=== PATIENT | female | born 1970 | race Caucasian/White ===

== ENCOUNTER 2016-11-04 10:04 | Emergency (ER) | payer SELFPAY ==
[2016-11-04 10:15] VITALS: BP 150/95; BMI 32.5
--- NOTE | 2016-11-04 11:02 | DR.NAUSEAF ---
HPI - Time Seen Time seen: 10:55 - Primary Care Physician Primary Care Physician: Dr Gonzalez - Complaints Chief Complaint:: "PT WOKE UP THIS MORNING WITH RIGHT SIDE PAIN AND N/V - Source History Provided: Patient - Mode of Arrival Mode of Arrival: Ambulatory - Timing Onset of Chief Complaint: 11/04/16 PMH - PMH Past Medical History: No Past Surgical History: Yes Surgical History: Other Past Surgical History Comment: BLADDER MESH, CARPARTANAL, PLATE IN HEAD - Family History History of Family Medical Conditions: Yes Family Medical History: Diabetes Mellitus, Cancer - Social History Does patient currently use any type of tobacco product: Yes Have you used tobacco products in the last 12 months: Yes Type of Tobacco Use: Cigarettes How many years tobacco product used: 35 Does any household member use tobacco: No Alcohol Use: None Do you use any recreational Drugs:: No Lives With: Family Lives Where: Home - infectious screening In the last 2 months have you had wt loss of >10#?: NO Have you had fever, night sweats or hemotysis?: No Have you traveled outside the country in the last 6 months?: No Isolation: Standard ROS - Review of Systems Constitutional: negative: Diaphoresis Eyes: No Symptoms Reported ENTM: No Symptoms Reported Respiratoy: No Symptoms Reported Cardiovascular: No Symptoms Reported Gastrointestinal/Abdominal: Abdominal Pain, Nausea Genitourinary: Dysuria Neurological: No Symptoms Reported Musculoskeletal: No Symptoms Reported Integumentary: No Symptoms Reported Hematologic/Lymphatic: No Symptoms Reported Endocrine: No Symptoms Reported Psychiatric: No Symptoms Reported All Other Systems: Reviewed and Negative PE - Vital Signs Vitals: Temperature 97.7 F Pulse Rate 80 Respiratory Rate 20 Blood Pressure 150/95 O2 Sat by Pulse Oximetry 98 - General Limitations: No Limitations General Appearance: Alert, In No Apparent Distress, Anxious - Head Head Exam: Normal Inspection, Atraumatic - Eyes Eye exam: Normal Appearance - ENT ENT Exam: Normal Exam - Neck Neck Exam: Normal Inspection, Full ROM - Chest Chest Inspection: Normal Inspection - Respiratory Respiratory Exam: Normal Lung Sounds Bilat Respiratory Exam: Bilateral Clear to Auscultation - Cardiovascular Cardiovascular Exam: Regular Rate, Normal Rhythm - Abdominal Exam Abdominal Exam: Normal Inspection Abdominal Tenderness: RLQ, Suprapubic - Rectal Rectal Exam: Deferred - External Exam: Female: Deferred : Speculum Exam (Female): Deferred : Bimanual Exam (female): Deferred - Extremities Extremities Exam: Normal Inspection - Back Back Exam: Normal Inspection - Neurologic Neurological Exam: Alert, Oriented X3, CN II-XII Intact - Psychiatric Psychiatric Exam: Normal Affect - Skin Skin Exam: Warm, Intact ROR - Labs Reviewed Laboratory Results Reviewed?: Yes (UA" WBC 5-10, Leukocyte esterace 2+) Result Diagrams: 11/04/16 11:17 11/04/16 11:17 Laboratory: WBC 10.0 X10^3/uL (3.6-10.0) 11/04/16 11:17 RBC 4.42 X10^6/uL (3.5-5.4) 11/04/16 11:17 Hgb 14.0 g/dL (12.0-16.0) 11/04/16 11:17 Hct 39.8 % (36.0-47.0) 11/04/16 11:17 MCV 90.1 fL (80.0-100.0) 11/04/16 11:17 MCH 31.6 pg (27.0-34.0) 11/04/16 11:17 MCHC 35.1 g/dL (33.0-35.0) H 11/04/16 11:17 RDW 12.9 % (11.6-16.5) 11/04/16 11:17 Plt Count 182 X10^3/uL (150.0-450.0) 11/04/16 11:17 MPV 9.8 fL (7.4-11.0) 11/04/16 11:17 Neut % 65.7 % (42.0-75.0) 11/04/16 11:17 Lymph % 24.2 % (21.0-51.0) 11/04/16 11:17 [place] % 7.5 % (0.0-13.0) 11/04/16 11:17 Eos % 1.6 % (0.9-2.9) 11/04/16 11:17 Baso % 1.0 % (0.2-1.0) 11/04/16 11:17 Neut # 6.5 x10^3/uL (2.2-4.8) H 11/04/16 11:17 Lymph # 2.4 X10^3/uL (1.3-2.9) 11/04/16 11:17 [place] # 0.8 x10^3/uL (0.3-0.8) 11/04/16 11:17 Eos # 0.2 x10^3/uL (0.0-0.2) 11/04/16 11:17 Baso # 0.1 X10^3/uL (0.0-0.1) 11/04/16 11:17 Absolute Nucleated RBC 0.1 /100WBC 11/04/16 11:17 Sodium 139 mmol/L (136-145) 11/04/16 11:17 Corrected Sodium TNP 11/04/16 11:17 Potassium 3.9 mmol/L (3.5-5.1) 11/04/16 11:17 Chloride 107 mmol/L (98-107) 11/04/16 11:17 Carbon Dioxide 23.8 mmol/L (21-32) 11/04/16 11:17 BUN 7 mg/dL (7-18) 11/04/16 11:17 Creatinine 0.71 mg/dL (0.55-1.02) 11/04/16 11:17 Est GFR (MDRD) Af Amer > 60 (>60) 11/04/16 11:17 Est GFR (MDRD) Non-Af > 60 (>60) 11/04/16 11:17 Glucose 96 mg/dL (65-99) 11/04/16 11:17 Calcium 8.6 mg/dL (8.5-10.1) 11/04/16 11:17 Corrected Calcium TNP 11/04/16 11:17 Total Bilirubin 0.20 mg/dL (0.2-1.0) 11/04/16 11:17 AST 14 Units/L (15-37) L 11/04/16 11:17 ALT 29 Units/L (12-78) 11/04/16 11:17 Alkaline Phosphatase 82 Units/L (46-116) 11/04/16 11:17 C-Reactive Protein 3.90 mg/L (0-3.0) H 11/04/16 11:17 Total Protein 6.8 g/dL (6.4-8.2) 11/04/16 11:17 Albumin 3.4 g/dL (3.4-5.0) 11/04/16 11:17 Globulin 3.4 g/dL (2.5-4.5) 11/04/16 11:17 Albumin/Globulin Ratio 1.0 Ratio (1.1-2.1) L 11/04/16 11:17 Specimen Type Clean catch urine 11/04/16 11:30 Urine Color Yellow (YELLOW) 11/04/16 11:30 Urine Appearance Cloudy (CLEAR) 11/04/16 11:30 Urine pH 5.0 (5.0 - 8.0) 11/04/16 11:30 Ur Specific [place] 1.020 (1.000-1.030) 11/04/16 11:30 Urine Protein 1+ (NEGATIVE) 11/04/16 11:30 Urine Glucose (UA) Negative (NEGATIVE) 11/04/16 11:30 Urine Ketones 1+ (NEGATIVE) 11/04/16 11:30 Urine Occult Blood Negative (NEGATIVE) 11/04/16 11:30 Urine Nitrite Negative (NEGATIVE) 11/04/16 11:30 Urine Bilirubin Negative (NEGATIVE) 11/04/16 11:30 Urine Urobilinogen 1+ (NORMAL) 11/04/16 11:30 Ur Leukocyte Esterase 2+ (NEGATIVE) 11/04/16 11:30 Urine RBC 0-3 /HPF (NEGATIVE) 11/04/16 11:30 Urine WBC 5-10 /HPF (NEGATIVE) 11/04/16 11:30 Ur Squamous Epith Cells Numerous /HPF (NEGATIVE) 11/04/16 11:30 Urine Bacteria Trace /HPF (NEGATIVE) 11/04/16 11:30 Hyaline Casts Few /LPF (NEGATIVE) 11/04/16 11:30 Urine Mucus Many /HPF (NEGATIVE) 11/04/16 11:30 Ur Culture Indicated? No/not indicated 11/04/16 11:30 - Diagnosis Discharge Problem: UTI (urinary tract infection) Qualifiers: Urinary tract infection type: acute cystitis Hematuria presence: without hematuria Qualified Code(s): N30.00 - Acute cystitis without hematuria - Discharge Plan Condition: Stable - Follow ups/Referrals Follow ups/Referrals: NFD,None [Primary Care Provider] - 3 days - Instructions
[2016-11-04] MEDS ORDERED: MORPHINE SULFATE INJ 4 MG IVP ONE (11:04)
[2016-11-04] MEDS ORDERED: NS 1000 ML 1,000 ML ONE (11:20)
[2016-11-04] MEDS ORDERED: MORPHINE SULFATE INJ 4 MG ONE (11:21)
[2016-11-04] MEDS ORDERED: STERILE WATER IRRIGATION IR ONE (11:21)
[2016-11-04 11:26] LABS: BASOPHILS # (AUTO) 0.1 X10^3/uL (0.0-0.1); EOSINOPHILS # (AUTO) 0.2 x10^3/uL (0.0-0.2); EOSINOPHILS % (AUTO) 1.6 % (0.9-2.9); HEMATOCRIT 39.8 % (36.0-47.0); LYMPHOCYTES # (AUTO) 2.4 X10^3/uL (1.3-2.9); LYMPHOCYTES % (AUTO) 24.2 % (21.0-51.0); MEAN CORPUSCULAR HEMOGLOBIN 31.6 pg (27.0-34.0); MEAN CORPUSCULAR HGB CONC 35.1 g/dL (33.0-35.0); MEAN CORPUSCULAR VOLUME 90.1 fL (80.0-100.0); MEAN PLATELET VOLUME 9.8 fL (7.4-11.0); MONOCYTES # (AUTO) 0.8 x10^3/uL (0.3-0.8); MONOCYTES % (AUTO) 7.5 % (0.0-13.0); NEUTROPHILS # (AUTO) 6.5 x10^3/uL (2.2-4.8); NEUTROPHILS % (AUTO) 65.7 % (42.0-75.0); PLATELET COUNT 182 X10^3/uL (150.0-450.0); RED BLOOD COUNT 4.42 X10^6/uL (3.5-5.4); RED CELL DISTRIBUTION WIDTH 12.9 % (11.6-16.5)
[2016-11-04 11:38] LABS: BILIRUBIN,URINE NEGATIVE (NEGATIVE); BLOOD/HEMOGLOBIN,URINE NEGATIVE (NEGATIVE); GLUCOSE, URINE NEGATIVE (NEGATIVE); KETONES,URINE 1+ (NEGATIVE); LEUKOCYTE ESTERASE ,URINE 2+ (NEGATIVE); NITRITES,URINE NEGATIVE (NEGATIVE); PROTEIN,URINE 1+ (NEGATIVE); UROBILINOGEN,URINE 1+ (NORMAL)
[2016-11-04 11:49] LABS: ALANINE AMINOTRANSFERASE 29 Units/L (12-78); ALBUMIN 3.4 g/dL (3.4-5.0); ALKALINE PHOSPHATASE 82 Units/L (46-116); ASPARTATE AMINO TRANSFERASE 14 Units/L (15-37); BLOOD UREA NITROGEN 7 mg/dL (7-18); CALCIUM 8.6 mg/dL (8.5-10.1); CARBON DIOXIDE 23.8 mmol/L (21-32); CHLORIDE 107 mmol/L (98-107); CREATININE 0.71 mg/dL (0.55-1.02); SODIUM 139 mmol/L (136-145); TOTAL PROTEIN 6.8 g/dL (6.4-8.2); eGFR BLACK RACES > 60 (>60); eGFR NON BLACK RACES > 60 (>60)
[2016-11-04 11:50] LABS: APPEARANCE,URINE CLOUDY (CLEAR); BACTERIA,URINE TRACE /HPF (NEGATIVE); COLOR,URINE YELLOW (YELLOW); HYALINE CASTS, URINE FEW /LPF (NEGATIVE); MUCUS,URINE MANY /HPF (NEGATIVE); RBC,URINE 0-3 /HPF (NEGATIVE); SQUAMOUS EPITHELIAL CELL,UR NUMEROUS /HPF (NEGATIVE)
[2016-11-04] MEDS ORDERED: NS 1000 ML 1,000 ML IV SCH (12:00)
[2016-11-04] MEDS ORDERED: BACTRIM DS TAB PO ONE ×2 (12:27→12:29)
== END 2016-11-04 12:40 | disposition home or self-care (01) ==
LOC: ER 10:25
DX: N30.00 Acute cystitis without hematuria (principal)
CPT/HCPCS: 36415; 80053; 81001; 85025; 86140; 96365; 96367; 96374; 99282; 99283; A4217; A4222; J2270

== ENCOUNTER 2016-11-07 10:07 | Emergency (ER) | payer SELFPAY ==
[2016-11-07 10:15] VITALS: BP 135/87; BMI 32.5
[2016-11-07] MEDS ORDERED: ZOFRAN INJ 4 MG VIAL IVP ONE (10:46)
[2016-11-07] MEDS ORDERED: MORPHINE SULFATE INJ 4 MG IM ONE (10:47)
--- NOTE | 2016-11-07 10:48 | DR.GENAD ---
HPI - PCP Primary Care Physician: Carlos - HPI Comment HPI Comment: TAKING MEDICATIONS BUT GETTING WORSE. PAIN WORSE AND PATIENT FEEL WEAK. NO DYSURIA. POOR ORAL INTAKE. - Complaint/Symptoms Chief Complaint Doctors Comments: RIGHT FLANK PAIN TIMES ONE WEEK. Chief Complaint:: "I came to the ER Thursday and they diagnosed me with a UTI. I am taking the medicine, but I have started getting way worse pain starting in my right side all the way to my back. It is a constant pain but when I move it gets really sharp." - Nurses notes reviewed Nurses Notes Review: Yes - Source History Provided: Patient - Mode of Arrival Mode of Arrival: Ambulatory - Timing Onset of Chief Complaint: 11/07/16 Came on: Gradually - Duration Duration: Constant Duration: Days - Severity Severity: Moderate PMH - PMH Past Medical History: No Past Surgical History: Yes Surgical History: Other Past Surgical History Comment: Plate in head - Family History History of Family Medical Conditions: Yes Family Medical History: Diabetes Mellitus, Cancer - Social History Does patient currently use any type of tobacco product: Yes Have you used tobacco products in the last 12 months: Yes Type of Tobacco Use: Cigarettes Does any household member use tobacco: Yes Alcohol Use: None Do you use any recreational Drugs:: No Lives With: Spouse Lives Where: Home - infectious screening In the last 2 months have you had wt loss of >10#?: NO Have you had fever, night sweats or hemotysis?: No Have you traveled outside the country in the last 6 months?: No Isolation: Standard ROS - Review of Systems Constitutional: Weakness, Fatigue, Loss of Appetite. negative: Chills, Fever Eyes: No Symptoms Reported. negative: Eye Pain, Discharge ENTM: No Symptoms Reported. negative: Ear Pain, Nose Discharge, Nose Congestion , Throat Pain Respiratoy: No Symptoms Reported. negative: Productive Cough, Non-Productive Cough, Short of Breath, Wheezing, Hemoptysis Cardiovascular: No Symptoms Reported. negative: Chest Pain Gastrointestinal/Abdominal: Abdominal Pain, Nausea. negative: Diarrhea, Vomiting Neurological: Weakness. negative: Headache, Dizziness Musculoskeletal: Back Pain, Muscle Pain, Right, Back Integumentary: No Symptoms Reported Hematologic/Lymphatic: No Symptoms Reported Endocrine: No Symptoms Reported All Other Systems: Reviewed and Negative PE - Vital Signs Vitals: Temperature 97.8 F Pulse Rate 74 Respiratory Rate 18 Blood Pressure 135/87 O2 Sat by Pulse Oximetry 96 - General Limitations: No Limitations General Appearance: Alert - Head Head Exam: Normal Inspection - Eyes Eye exam: Normal Appearance - ENT ENT Exam: Normal External Ear Exam External Ear Exam: Normal External Inspection TM/Canal Exam: Bilateral Normal Mouth Exam: Normal Inspection Throat Exam: Normal Inspection - Neck Neck Exam: Normal Inspection - Chest Chest Inspection: Symmetric Chest Wall Rise - Respiratory Respiratory Exam: Normal Lung Sounds Bilat Respiratory Exam: Bilateral Clear to Auscultation - Cardiovascular Cardiovascular Exam: Regular Rate, Normal Rhythm, Normal Heart Sounds - Abdominal Exam Abdominal Exam: Normal Bowel Sounds, Soft. negative: Tenderness - Extremities Extremities Exam: Normal Inspection - Back Back Exam: Paraspinal Tenderness - Neurologic Neurological Exam: Alert, Oriented X3 - Psychiatric Psychiatric Exam: Normal Affect, Normal Mood - Skin Skin Exam: Normal Color MDM - Differential Diagnosis Differential Diagnosis: LOW BACK PAIN, UTI, KIDNEY STONE Course - Treatment Treatment: SEE ODERS. - Education/Counseling Education/Counseling: Patient, Education Educated On: Treatment, Diagnosis, Needs for Follow Up ROR - Labs Reviewed Laboratory Results Reviewed?: Yes Result Diagrams: 11/07/16 11:00 11/07/16 11:00 Laboratory: WBC 9.2 X10^3/uL (3.6-10.0) 11/07/16 11:00 RBC 4.39 X10^6/uL (3.5-5.4) 11/07/16 11:00 Hgb 13.6 g/dL (12.0-16.0) 11/07/16 11:00 Hct 39.5 % (36.0-47.0) 11/07/16 11:00 MCV 90.1 fL (80.0-100.0) 11/07/16 11:00 MCH 30.9 pg (27.0-34.0) 11/07/16 11:00 MCHC 34.3 g/dL (33.0-35.0) 11/07/16 11:00 RDW 12.8 % (11.6-16.5) 11/07/16 11:00 Plt Count 162 X10^3/uL (150.0-450.0) 11/07/16 11:00 MPV 9.8 fL (7.4-11.0) 11/07/16 11:00 Neut % 68.6 % (42.0-75.0) 11/07/16 11:00 Lymph % 22.3 % (21.0-51.0) 11/07/16 11:00 [place] % 6.9 % (0.0-13.0) 11/07/16 11:00 Eos % 1.0 % (0.9-2.9) 11/07/16 11:00 Baso % 1.2 % (0.2-1.0) H 11/07/16 11:00 Neut # 6.3 x10^3/uL (2.2-4.8) H 11/07/16 11:00 Lymph # 2.0 X10^3/uL (1.3-2.9) 11/07/16 11:00 [place] # 0.6 x10^3/uL (0.3-0.8) 11/07/16 11:00 Eos # 0.1 x10^3/uL (0.0-0.2) 11/07/16 11:00 Baso # 0.1 X10^3/uL (0.0-0.1) 11/07/16 11:00 Absolute Nucleated RBC 0.0 /100WBC 11/07/16 11:00 Sodium 137 mmol/L (136-145) 11/07/16 11:00 Corrected Sodium TNP 11/07/16 11:00 Potassium 4.2 mmol/L (3.5-5.1) 11/07/16 11:00 Chloride 105 mmol/L (98-107) 11/07/16 11:00 Carbon Dioxide 26.5 mmol/L (21-32) 11/07/16 11:00 BUN 13 mg/dL (7-18) 11/07/16 11:00 Creatinine 0.82 mg/dL (0.55-1.02) 11/07/16 11:00 Est GFR (MDRD) Af Amer > 60 (>60) 11/07/16 11:00 Est GFR (MDRD) Non-Af > 60 (>60) 11/07/16 11:00 Glucose 84 mg/dL (65-99) 11/07/16 11:00 Calcium 8.6 mg/dL (8.5-10.1) 11/07/16 11:00 Corrected Calcium TNP 11/07/16 11:00 Total Bilirubin 0.30 mg/dL (0.2-1.0) 11/07/16 11:00 AST 15 Units/L (15-37) 11/07/16 11:00 ALT 26 Units/L (12-78) 11/07/16 11:00 Alkaline Phosphatase 77 Units/L (46-116) 11/07/16 11:00 Total Protein 6.8 g/dL (6.4-8.2) 11/07/16 11:00 Albumin 3.5 g/dL (3.4-5.0) 11/07/16 11:00 Globulin 3.3 g/dL (2.5-4.5) 11/07/16 11:00 Albumin/Globulin Ratio 1.1 Ratio (1.1-2.1) 11/07/16 11:00 Specimen Type Clean catch urine 11/07/16 11:29 Urine Color Yellow (YELLOW) 11/07/16 11:29 Urine Appearance Hazy (CLEAR) 11/07/16 11:29 Urine pH 6.0 (5.0 - 8.0) 11/07/16 11:29 Ur Specific [place] 1.015 (1.000-1.030) 11/07/16 11:29 Urine Protein Negative (NEGATIVE) 11/07/16 11:29 Urine Glucose (UA) Negative (NEGATIVE) 11/07/16 11:29 Urine Ketones Negative (NEGATIVE) 11/07/16 11:29 Urine Occult Blood Negative (NEGATIVE) 11/07/16 11:29 Urine Nitrite Negative (NEGATIVE) 11/07/16 11:29 Urine Bilirubin Negative (NEGATIVE) 11/07/16 11:29 Urine Urobilinogen Normal (NORMAL) 11/07/16 11:29 Ur Leukocyte Esterase 1+ (NEGATIVE) 11/07/16 11:29 Urine RBC Rare /HPF (NEGATIVE) 11/07/16 11:29 Urine WBC 0 - 3 /HPF (NEGATIVE) 11/07/16 11:29 Ur Squamous Epith Cells Many /HPF (NEGATIVE) 11/07/16 11:29 Amorphous Sediment 2+ /HPF (NEGATIVE) 11/07/16 11:29 Urine Bacteria Trace /HPF (NEGATIVE) 11/07/16 11:29 Ur Culture Indicated? No/not indicated 11/07/16 11:29 - XRAY XRAY Interpreted by: Radiologist XRAY Findings: REPORT DISCUSS WITH PATIENT. - Diagnosis Discharge Problem: Abdominal pain Qualifiers: Abdominal location: lower abdomen, unspecified Qualified Code(s): R10.30 - Lower abdominal pain, unspecified Low back pain Qualifiers: Chronicity: acute Back pain laterality: right Sciatica presence: without sciatica Qualified Code(s): M54.5 - Low back pain - Discharge Plan Disposition: HOME, SELF-CARE Condition: Stable Prescriptions: Cyclobenzaprine HCl [FLEXERIL 10 MG *] 10 mg PO TID #20 tab - Follow ups/Referrals Follow ups/Referrals: HILDA STRICKLAND [Primary Care Provider] - 3 days - Instructions Instructions: Abdominal Pain, Adult, Exrt-as-[place]jem, Back Pain, Adult, Easy-to- Read Additional Instructions: RETURN TO ED IF WORSE.
[2016-11-07] MEDS ORDERED: ZOFRAN INJ 4 MG VIAL ONE (11:04)
[2016-11-07] MEDS ORDERED: MORPHINE SULFATE INJ 4 MG ONE (11:04)
[2016-11-07 11:11] LABS: BASOPHILS # (AUTO) 0.1 X10^3/uL (0.0-0.1); BASOPHILS % (AUTO) 1.2 % (0.2-1.0); EOSINOPHILS # (AUTO) 0.1 x10^3/uL (0.0-0.2); HEMATOCRIT 39.5 % (36.0-47.0); HEMOGLOBIN 13.6 g/dL (12.0-16.0); LYMPHOCYTES % (AUTO) 22.3 % (21.0-51.0); MEAN CORPUSCULAR HEMOGLOBIN 30.9 pg (27.0-34.0); MEAN CORPUSCULAR HGB CONC 34.3 g/dL (33.0-35.0); MEAN CORPUSCULAR VOLUME 90.1 fL (80.0-100.0); MEAN PLATELET VOLUME 9.8 fL (7.4-11.0); MONOCYTES # (AUTO) 0.6 x10^3/uL (0.3-0.8); MONOCYTES % (AUTO) 6.9 % (0.0-13.0); NEUTROPHILS # (AUTO) 6.3 x10^3/uL (2.2-4.8); NEUTROPHILS % (AUTO) 68.6 % (42.0-75.0); PLATELET COUNT 162 X10^3/uL (150.0-450.0); RED BLOOD COUNT 4.39 X10^6/uL (3.5-5.4); RED CELL DISTRIBUTION WIDTH 12.8 % (11.6-16.5); WHITE BLOOD COUNT 9.2 X10^3/uL (3.6-10.0)
[2016-11-07 11:20] LABS: ALANINE AMINOTRANSFERASE 26 Units/L (12-78); ALBUMIN 3.5 g/dL (3.4-5.0); ALKALINE PHOSPHATASE 77 Units/L (46-116); ASPARTATE AMINO TRANSFERASE 15 Units/L (15-37); BLOOD UREA NITROGEN 13 mg/dL (7-18); CALCIUM 8.6 mg/dL (8.5-10.1); CARBON DIOXIDE 26.5 mmol/L (21-32); CHLORIDE 105 mmol/L (98-107); CREATININE 0.82 mg/dL (0.55-1.02); SODIUM 137 mmol/L (136-145); TOTAL PROTEIN 6.8 g/dL (6.4-8.2); eGFR BLACK RACES > 60 (>60); eGFR NON BLACK RACES > 60 (>60)
[2016-11-07 11:44] LABS: BILIRUBIN,URINE NEGATIVE (NEGATIVE); BLOOD/HEMOGLOBIN,URINE NEGATIVE (NEGATIVE); GLUCOSE, URINE NEGATIVE (NEGATIVE); KETONES,URINE NEGATIVE (NEGATIVE); LEUKOCYTE ESTERASE ,URINE 1+ (NEGATIVE); NITRITES,URINE NEGATIVE (NEGATIVE); PROTEIN,URINE NEGATIVE (NEGATIVE); UROBILINOGEN,URINE NORMAL (NORMAL)
[2016-11-07 11:51] LABS: APPEARANCE,URINE HAZY (CLEAR); COLOR,URINE YELLOW (YELLOW)
--- NOTE | 2016-11-07 11:52 | CT ---
History: Right flank pain Study: CT abdomen and pelvis without contrast Findings: [address] imaging is performed from above the diaphragms to below the pubic s ymphysis without oral or intravenous contrast given. Coronal and sagittal reformatted images are subm itted as well. Lung bases are clear and there are no pleural effusions. The liver and spleen are norm al in size and uniform in density. The pancreas, gallbladder, adrenal glands and kidneys appear anato mically normal. No masses adenopathy or abnormal fluid collections are identified. The appendix appea rs unremarkable. Impression: Normal noncontrast CT of the chest and abdomen. Reported By:
[2016-11-07 11:54] LABS: AMORPHOUS SEDIMENT,UR 2+ /HPF (NEGATIVE); BACTERIA,URINE TRACE /HPF (NEGATIVE); RBC,URINE RARE /HPF (NEGATIVE); SQUAMOUS EPITHELIAL CELL,UR MANY /HPF (NEGATIVE)
== END 2016-11-07 12:34 | disposition home or self-care (01) ==
LOC: ER 10:18
DX: R10.84 Generalized abdominal pain (principal); M54.5 Low back pain
CPT/HCPCS: 36415; 74176; 80053; 81001; 85025; 96372; 99282; 99283; J2270; J2405

== ENCOUNTER 2017-06-11 10:22 | Emergency (ER) | payer SELFPAY ==
[2017-06-11 10:29] VITALS: BP 126/63; BMI 32.5
[2017-06-11 11:33] LABS: BILIRUBIN,URINE NEGATIVE (NEGATIVE); BLOOD/HEMOGLOBIN,URINE NEGATIVE (NEGATIVE); GLUCOSE, URINE NEGATIVE (NEGATIVE); KETONES,URINE NEGATIVE (NEGATIVE); LEUKOCYTE ESTERASE ,URINE 1+ (NEGATIVE); NITRITES,URINE NEGATIVE (NEGATIVE); PROTEIN,URINE 2+ (NEGATIVE); UROBILINOGEN,URINE NORMAL (NORMAL)
[2017-06-11 11:41] LABS: APPEARANCE,URINE HAZY (CLEAR); COLOR,URINE YELLOW (YELLOW)
[2017-06-11 11:42] LABS: BACTERIA,URINE NEGATIVE /HPF (NEGATIVE); RBC,URINE NONE SEEN /HPF (NONE SEEN); SQUAMOUS EPITHELIAL CELL,UR MODERATE /HPF (NEGATIVE)
[2017-06-11] MEDS ORDERED: TORADOL 60 MG VIAL IM ONE (11:43)
[2017-06-11] MEDS ORDERED: TUSSIONEX PENNKINETIC SUSP PO ONE (11:43)
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
[2017-06-11] MEDS ORDERED: TORADOL 60 MG VIAL ONE (12:08)
[2017-06-11] MEDS ORDERED: TUSSIONEX PENNKINETIC SUSP ONE (12:09)
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
--- NOTE | 2017-06-11 12:29 | RAD ---
HISTORY: Headache. Cough. Study: PA and lateral chest Comparison: None Findings: The lungs are clear. The heart size is normal. Minimal thoracic spondylosis is noted. IMPRESSION: 1. No radiographic evidence of acute cardiopulmonary disease. Reported By:
[2017-06-11 12:35] LABS: BASOPHILS # (AUTO) 0.1 X10^3/uL (0.0-0.1); BASOPHILS % (AUTO) 0.8 % (0.2-1.0); EOSINOPHILS # (AUTO) 0.4 x10^3/uL (0.0-0.2); EOSINOPHILS % (AUTO) 5.9 % (0.9-2.9); HEMATOCRIT 40.7 % (36.0-47.0); HEMOGLOBIN 14.1 g/dL (12.0-16.0); LYMPHOCYTES # (AUTO) 1.7 X10^3/uL (1.3-2.9); LYMPHOCYTES % (AUTO) 26.2 % (21.0-51.0); MEAN CORPUSCULAR HEMOGLOBIN 30.6 pg (27.0-34.0); MEAN CORPUSCULAR HGB CONC 34.6 g/dL (33.0-35.0); MEAN CORPUSCULAR VOLUME 88.5 fL (80.0-100.0); MEAN PLATELET VOLUME 9.5 fL (7.4-11.0); MONOCYTES # (AUTO) 0.6 x10^3/uL (0.3-0.8); MONOCYTES % (AUTO) 8.7 % (0.0-13.0); NEUTROPHILS # (AUTO) 3.7 x10^3/uL (2.2-4.8); NEUTROPHILS % (AUTO) 58.4 % (42.0-75.0); PLATELET COUNT 176 X10^3/uL (150.0-450.0); RED CELL DISTRIBUTION WIDTH 12.4 % (11.6-16.5); WHITE BLOOD COUNT 6.4 X10^3/uL (3.6-10.0)
[2017-06-11 12:46] LABS: ALANINE AMINOTRANSFERASE 25 Units/L (12-78); ALBUMIN 3.5 g/dL (3.4-5.0); ALKALINE PHOSPHATASE 110 Units/L (46-116); ASPARTATE AMINO TRANSFERASE 14 Units/L (15-37); BLOOD UREA NITROGEN 9 mg/dL (7-18); CALCIUM 8.1 mg/dL (8.5-10.1); CARBON DIOXIDE 31.1 mmol/L (21-32); CHLORIDE 101 mmol/L (98-107); CREATININE 0.75 mg/dL (0.55-1.02); SODIUM 139 mmol/L (136-145); TOTAL PROTEIN 7.3 g/dL (6.4-8.2); eGFR BLACK RACES > 60 (>60); eGFR NON BLACK RACES > 60 (>60)
== END 2017-06-11 12:58 | disposition home or self-care (01) ==
LOC: ER 10:32
DX: J40 Bronchitis, not specified as acute or chronic (principal); R51 Headache; J01.80 Other acute sinusitis
CPT/HCPCS: 36415; 70450; 71046; 80053; 81001; 85025; 96372; 99282; J1885